=== PATIENT | female | born 1955 | race Caucasian/White ===

== ENCOUNTER → 2018-07-18 | Outpatient (REF) | payer OTHER ==
[2018-07-18 19:54] LABS: CALCIUM LEVEL 9.3 MG/DL (8.8-10.2); PHOSPHORUS LEVEL 3.8 MG/DL (2.5-4.9)
[2018-07-18 20:08] LABS: PTH INTACT 53.8 PG/ML (18.5-88.0); TOTAL 25(OH) VITAMIN D 53.9 NG/ML (30.0-100.0)
== END ==
LOC: M LABDRWAD 19:11
PROVIDERS: ATTEND Nurse Practitioner Family
DX: M81.0 Age-related osteoporosis without current pathological fracture (principal)

== ENCOUNTER → 2018-11-27 | Outpatient (REF) | payer OTHER ==
[2018-11-27 13:30] LABS: BLOOD UREA NITROGEN 10 MG/DL (7-18); CALCIUM LEVEL 9.2 MG/DL (8.8-10.2); CARBON DIOXIDE LEVEL 29 MEQ/L (21-32); CHLORIDE LEVEL 104 MEQ/L (98-107); CHOLESTEROL LEVEL 162 MG/DL (<200); CHOLESTEROL RISK RATIO 2.492 (<5); CREATININE FOR GFR 0.74 MG/DL (0.55-1.30); FREE T4 1.12 NG/DL (0.76-1.46); GLOMERULAR FILTRATION RATE > 60.0 (>45); GLUCOSE, FASTING 84 MG/DL (70-100); HDL CHOLESTEROL 65 MG/DL (>40); LDL CHOLESTEROL 85 MG/DL (<100); NON-HDL-C 97 MG/DL; POTASSIUM SERUM 4.4 MEQ/L (3.5-5.1); SODIUM LEVEL 140 MEQ/L (136-145); THYROXINE (T4) 8.3 UG/DL (4.5-12.0); TRIGLYCERIDES LEVEL 62 MG/DL (<150)
== END ==
LOC: M LABDRWAD 12:31
PROVIDERS: ATTEND Family Medicine
DX: E03.4 Atrophy of thyroid (acquired) (principal); E55.9 Vitamin D deficiency, unspecified; E78.5 Hyperlipidemia, unspecified

== ENCOUNTER → 2019-03-29 | Outpatient (REF) ==
[~2019-03-29] MED LIST: ATOR1TAB19 PO; ATOR1TAB21 PO; CALCTAB89 PO; D 50CAP3 PO; LEVO75TA4 PO; OMEP-218 PO
== END ==
LOC: M LAB LCGH 08:56
PROVIDERS: ATTEND Surgery
DX: K22.70 Barrett's esophagus without dysplasia (principal)

== ENCOUNTER → 2019-04-02 | Outpatient (REF) | payer OTHER ==
[2019-04-02 13:12] LABS: BLOOD UREA NITROGEN 17 MG/DL (7-18); CALCIUM LEVEL 9.7 MG/DL (8.8-10.2); CARBON DIOXIDE LEVEL 31 MEQ/L (21-32); CHLORIDE LEVEL 104 MEQ/L (98-107); CREATININE FOR GFR 0.71 MG/DL (0.55-1.30); GLOMERULAR FILTRATION RATE > 60.0 (>45); GLUCOSE, FASTING 77 MG/DL (70-100); POTASSIUM SERUM 4.9 MEQ/L (3.5-5.1); SODIUM LEVEL 140 MEQ/L (136-145)
[2019-04-02 13:21] LABS: TOTAL 25(OH) VITAMIN D 80.8 NG/ML (30.0-100.0)
== END ==
LOC: M LABDRWAD 12:22
PROVIDERS: ATTEND Nurse Practitioner Family
DX: M81.0 Age-related osteoporosis without current pathological fracture (principal)

== ENCOUNTER → 2019-05-28 | Outpatient (REF) | payer OTHER | LOC: M LAB LCGH 12:49 | PROVIDERS: ATTEND Family Medicine | DX: Z12.4 Encounter for screening for malignant neoplasm of cervix (principal); N95.2 Postmenopausal atrophic vaginitis ==

== ENCOUNTER → 2019-07-05 | Outpatient (REF) | payer OTHER ==
[2019-07-05 16:58] LABS: BLOOD UREA NITROGEN 11 MG/DL (7-18); CALCIUM LEVEL 9.4 MG/DL (8.8-10.2); CARBON DIOXIDE LEVEL 30 MEQ/L (21-32); CHLORIDE LEVEL 105 MEQ/L (98-107); CREATININE FOR GFR 0.71 MG/DL (0.55-1.30); GLOMERULAR FILTRATION RATE > 60.0 (>45); GLUCOSE, FASTING 70 MG/DL (70-100); POTASSIUM SERUM 4.4 MEQ/L (3.5-5.1); SODIUM LEVEL 140 MEQ/L (136-145)
== END ==
LOC: M LAB REF 16:01 → M LABDRWAD 16:01
PROVIDERS: ATTEND Internal Medicine Endocrinology, Diabetes & Metabolism
DX: M81.0 Age-related osteoporosis without current pathological fracture (principal)

== ENCOUNTER → 2020-01-14 | Outpatient (REF) | payer OTHER ==
[~2020-01-14] MED LIST changes: +METH1TAB40 PO
[2020-01-14 18:46] LABS: BLOOD UREA NITROGEN 14 MG/DL (7-18); CARBON DIOXIDE LEVEL 30 MEQ/L (21-32); CHLORIDE LEVEL 108 MEQ/L (98-107); CREATININE FOR GFR 0.76 MG/DL (0.55-1.30); GLOMERULAR FILTRATION RATE > 60.0 (>45); GLUCOSE, FASTING 85 MG/DL (70-100); POTASSIUM SERUM 4.1 MEQ/L (3.5-5.1); SODIUM LEVEL 139 MEQ/L (136-145)
[2020-01-14 18:57] LABS: TOTAL 25(OH) VITAMIN D 85.4 NG/ML (30.0-100.0)
== END ==
LOC: M LABDRWAD 17:43
PROVIDERS: ATTEND Internal Medicine Endocrinology, Diabetes & Metabolism
DX: E55.9 Vitamin D deficiency, unspecified (principal)

== ENCOUNTER 2020-04-09 08:33 | Outpatient (CLI) | payer OTHER ==
[~2020-04-09] VITALS: Ht 160 cm; Wt 64.4 kg
[~2020-04-09 08:33] MED LIST changes: -METH1TAB40 PO; +ZOLEDRONIC ACID 5 MG in IV 1 EA IV ONE
[2020-04-09 08:43] VITALS: BP 135/71
[2020-04-09] MEDS ORDERED: METH1TAB40 PO (08:57)
[2020-04-09 09:35] VITALS: BP 136/81
== END 2020-04-09 09:35 | disposition home or self-care (01) ==
LOC: M INFU 08:33
PROVIDERS: ATTEND Internal Medicine Endocrinology, Diabetes & Metabolism
DX: M81.0 Age-related osteoporosis without current pathological fracture (principal)
CPT/HCPCS: 96365; J3489

== ENCOUNTER → 2020-07-14 | Outpatient (REF) | payer OTHER ==
[~2020-07-14] MED LIST changes: +METH1TAB40 PO; -ZOLEDRONIC ACID 5 MG in IV 1 EA IV ONE
[2020-07-14 18:00] LABS: BLOOD UREA NITROGEN 9 MG/DL (7-18); CALCIUM LEVEL 9.2 MG/DL (8.8-10.2); CARBON DIOXIDE LEVEL 30 MEQ/L (21-32); CHLORIDE LEVEL 107 MEQ/L (98-107); CREATININE FOR GFR 0.73 MG/DL (0.55-1.30); GLOMERULAR FILTRATION RATE > 60.0 (>45); GLUCOSE, FASTING 80 MG/DL (70-100); POTASSIUM SERUM 4.1 MEQ/L (3.5-5.1); SODIUM LEVEL 141 MEQ/L (136-145)
== END ==
LOC: M LABDRWAD 16:09
PROVIDERS: ATTEND Nurse Practitioner Family
DX: M81.0 Age-related osteoporosis without current pathological fracture (principal)

== ENCOUNTER → 2021-02-24 | Outpatient (REF) | payer OTHER ==
[~2021-02-24] MED LIST changes: +METH-1164 PO; -METH1TAB40 PO
[2021-02-24 13:52] LABS: BLOOD UREA NITROGEN 6 MG/DL (7-18); CALCIUM LEVEL 8.9 MG/DL (8.8-10.2); CARBON DIOXIDE LEVEL 30 MEQ/L (21-32); CHLORIDE LEVEL 105 MEQ/L (98-107); CREATININE FOR GFR 0.76 MG/DL (0.55-1.30); GLOMERULAR FILTRATION RATE > 60.0 (>45); GLUCOSE, FASTING 95 MG/DL (70-100); POTASSIUM SERUM 4.2 MEQ/L (3.5-5.1); SODIUM LEVEL 140 MEQ/L (136-145)
[2021-02-24 13:55] LABS: TOTAL 25(OH) VITAMIN D 55.4 NG/ML (30.0-100.0)
== END ==
LOC: M LABDRWAD 12:40
PROVIDERS: ATTEND Nurse Practitioner Family
DX: M81.0 Age-related osteoporosis without current pathological fracture (principal); E55.9 Vitamin D deficiency, unspecified

== ENCOUNTER 2021-04-13 14:58 | Outpatient (CLI) | payer MEDICARE ==
[~2021-04-13] VITALS: Ht 160 cm; Wt 64.4 kg
[2021-04-13] MEDS ORDERED: ZOLEDRONIC ACID 5 MG in IV 1 EA IV ONE (15:00)
[2021-04-13 15:30] VITALS: BP 143/71
[2021-04-13 16:05] VITALS: BP 136/64
== END 2021-04-13 16:05 | disposition home or self-care (01) ==
LOC: M INFU 14:58
PROVIDERS: ATTEND Internal Medicine Endocrinology, Diabetes & Metabolism
DX: M81.0 Age-related osteoporosis without current pathological fracture (principal); Z88.8 Allergy status to other drugs, medicaments and biological substances
CPT/HCPCS: 96365; J3489

== ENCOUNTER → 2021-06-16 | Outpatient (REF) | payer MEDICARE, OTHER ==
[2021-06-16 13:40] LABS: BLOOD UREA NITROGEN 15 MG/DL (7-18); CALCIUM LEVEL 9.3 MG/DL (8.8-10.2); CARBON DIOXIDE LEVEL 29 MEQ/L (21-32); CHLORIDE LEVEL 105 MEQ/L (98-107); CREATININE FOR GFR 0.69 MG/DL (0.55-1.30); GLOMERULAR FILTRATION RATE > 60.0 (>45); GLUCOSE, FASTING 88 MG/DL (70-100); POTASSIUM SERUM 4.1 MEQ/L (3.5-5.1); SODIUM LEVEL 139 MEQ/L (136-145)
== END ==
LOC: M LABDRWAD 12:28
PROVIDERS: ATTEND Internal Medicine Endocrinology, Diabetes & Metabolism
DX: M81.0 Age-related osteoporosis without current pathological fracture (principal)

== ENCOUNTER → 2021-07-28 | Outpatient (REF) | payer MEDICARE, OTHER ==
[~2021-07-28] MED LIST changes: +OMEP-173 PO; -OMEP-218 PO
[2021-07-28 18:15] LABS: BLOOD UREA NITROGEN 14 MG/DL (7-18); CALCIUM LEVEL 9.1 MG/DL (8.8-10.2); CARBON DIOXIDE LEVEL 29 MEQ/L (21-32); CHLORIDE LEVEL 107 MEQ/L (98-107); CREATININE FOR GFR 0.73 MG/DL (0.55-1.30); GLOMERULAR FILTRATION RATE > 60.0 (>45); GLUCOSE, FASTING 72 MG/DL (70-100); POTASSIUM SERUM 4.5 MEQ/L (3.5-5.1); SODIUM LEVEL 140 MEQ/L (136-145)
[2021-07-28 18:26] LABS: TOTAL 25(OH) VITAMIN D 74.4 NG/ML (30.0-100.0)
== END ==
LOC: M LABDRWAD 16:29
PROVIDERS: ATTEND Internal Medicine Endocrinology, Diabetes & Metabolism
DX: E55.9 Vitamin D deficiency, unspecified (principal); M81.0 Age-related osteoporosis without current pathological fracture

== ENCOUNTER → 2021-08-12 | Outpatient (REF) | payer MEDICARE, OTHER ==
[2021-08-12 12:52] LABS: BASO # 0.1 10^3/uL (0.0-0.2); BASO % 0.9 % (0.0-1.0); EOS # 0.1 10^3/uL (0.0-0.5); EOS % 2.4 % (0.0-3.0); HEMATOCRIT 41.8 % (36.0-47.0); HEMOGLOBIN 13.4 g/dl (12.0-15.5); LYMPH # 1.3 10^3/uL (1.5-5.0); LYMPH % 23.3 % (24.0-44.0); MEAN CORPUSCULAR HEMOGLOBIN 28.6 pg (27.0-33.0); MEAN CORPUSCULAR HGB CONC 32.1 g/dl (32.0-36.5); MEAN CORPUSCULAR VOLUME 89.1 fl (80.0-96.0); MONO # 0.4 10^3/uL (0.0-0.8); MONO % 6.9 % (2.0-8.0); NEUTROPHILS # 3.8 10^3/uL (1.5-8.5); NEUTROPHILS % 66.2 % (36.0-66.0); PLATELET COUNT, AUTOMATED 244 10^3/uL (150-450); RED BLOOD COUNT 4.69 10^6/uL (4.00-5.40); WHITE BLOOD COUNT 5.8 10^3/uL (4.0-10.0)
[2021-08-12 13:22] LABS: ALT/SGPT 26 U/L (12-78); BLOOD UREA NITROGEN 16 MG/DL (7-18); CALCIUM LEVEL 9.4 MG/DL (8.8-10.2); CARBON DIOXIDE LEVEL 29 MEQ/L (21-32); CHLORIDE LEVEL 105 MEQ/L (98-107); CREATININE FOR GFR 0.77 MG/DL (0.55-1.30); GLOMERULAR FILTRATION RATE > 60.0 (>45); GLUCOSE, FASTING 66 MG/DL (70-100); POTASSIUM SERUM 4.4 MEQ/L (3.5-5.1); SODIUM LEVEL 140 MEQ/L (136-145)
[2021-08-12 13:23] LABS: BILIRUBIN,TOTAL 0.3 MG/DL (0.2-1.0); FREE T4 1.08 NG/DL (0.76-1.46); TOTAL PROTEIN 6.9 GM/DL (6.4-8.2)
[2021-08-13 10:48] LABS: TOTAL 25(OH) VITAMIN D 84.5 NG/ML (30.0-100.0)
== END ==
LOC: M LABDRWAD 12:22
PROVIDERS: ATTEND Nurse Practitioner Family
DX: E03.9 Hypothyroidism, unspecified (principal); D64.9 Anemia, unspecified; E55.9 Vitamin D deficiency, unspecified; Z79.899 Other long term (current) drug therapy

== ENCOUNTER → 2021-09-08 | Outpatient (REF) | payer MEDICARE, OTHER ==
[2021-09-08 14:38] LABS: BASO # 0.1 10^3/uL (0.0-0.2); BASO % 0.9 % (0.0-1.0); HEMATOCRIT 42.8 % (36.0-47.0); HEMOGLOBIN 13.7 g/dl (12.0-15.5); LYMPH # 1.3 10^3/uL (1.5-5.0); LYMPH % 22.8 % (24.0-44.0); MEAN CORPUSCULAR HEMOGLOBIN 28.5 pg (27.0-33.0); MONO # 0.6 10^3/uL (0.0-0.8); MONO % 10.4 % (2.0-8.0); NEUTROPHILS # 3.8 10^3/uL (1.5-8.5); NEUTROPHILS % 65.7 % (36.0-66.0); PLATELET COUNT, AUTOMATED 235 10^3/uL (150-450); RED BLOOD COUNT 4.81 10^6/uL (4.00-5.40); WHITE BLOOD COUNT 5.8 10^3/uL (4.0-10.0)
[2021-09-08 16:06] LABS: ALBUMIN 4.3 GM/DL (3.2-5.2); ALT/SGPT 30 U/L (12-78); BILIRUBIN,TOTAL 0.4 MG/DL (0.2-1.0); BLOOD UREA NITROGEN 10 MG/DL (7-18); CALCIUM LEVEL 9.7 MG/DL (8.8-10.2); CARBON DIOXIDE LEVEL 32 MEQ/L (21-32); CHLORIDE LEVEL 103 MEQ/L (98-107); CHOLESTEROL LEVEL 166 MG/DL (<200); CHOLESTEROL RISK RATIO 2.515 (<5); CREATININE FOR GFR 0.76 MG/DL (0.55-1.30); GLOMERULAR FILTRATION RATE > 60.0 (>45); GLUCOSE, FASTING 86 MG/DL (70-100); HDL CHOLESTEROL 66 MG/DL (>40); LDL CHOLESTEROL 82 MG/DL (<100); NON-HDL-C 100 MG/DL; POTASSIUM SERUM 3.8 MEQ/L (3.5-5.1); SODIUM LEVEL 140 MEQ/L (136-145); TOTAL PROTEIN 7.2 GM/DL (6.4-8.2); TRIGLYCERIDES LEVEL 90 MG/DL (<150)
== END ==
LOC: M LABDRWAD 12:41
PROVIDERS: ATTEND Nurse Practitioner Family
DX: D64.9 Anemia, unspecified (principal); E03.9 Hypothyroidism, unspecified; E78.00 Pure hypercholesterolemia, unspecified

== ENCOUNTER → 2022-03-22 | Outpatient (REF) | payer MEDICARE ==
[2022-03-22 13:19] LABS: HEMATOCRIT 41.7 % (36.0-47.0); HEMOGLOBIN 13.2 g/dl (12.0-15.5); MEAN CORPUSCULAR HEMOGLOBIN 28.7 pg (27.0-33.0); MEAN CORPUSCULAR HGB CONC 31.7 g/dl (32.0-36.5); MEAN CORPUSCULAR VOLUME 90.7 fl (80.0-96.0); PLATELET COUNT, AUTOMATED 229 10^3/uL (150-450); WHITE BLOOD COUNT 5.7 10^3/uL (4.0-10.0)
[2022-03-22 14:09] LABS: ALT/SGPT 26 U/L (12-78); BILIRUBIN,TOTAL 0.4 MG/DL (0.2-1.0); BLOOD UREA NITROGEN 12 MG/DL (7-18); CALCIUM LEVEL 9.5 MG/DL (8.8-10.2); CARBON DIOXIDE LEVEL 30 MEQ/L (21-32); CHLORIDE LEVEL 103 MEQ/L (98-107); CHOLESTEROL LEVEL 151 MG/DL (<200); CHOLESTEROL RISK RATIO 2.188 (<5); CREATININE FOR GFR 0.79 MG/DL (0.55-1.30); FERRITIN 76 NG/ML (8-252); FREE T4 1.09 NG/DL (0.76-1.46); GLOMERULAR FILTRATION RATE > 60.0 (>45); GLUCOSE, FASTING 89 MG/DL (70-100); HDL CHOLESTEROL 69 MG/DL (>40); IRON (FE) 73 UG/DL (50-170); LDL CHOLESTEROL 71 MG/DL (<100); NON-HDL-C 82 MG/DL; POTASSIUM SERUM 4.1 MEQ/L (3.5-5.1); SODIUM LEVEL 136 MEQ/L (136-145); TOTAL IRON BINDING CAPACITY 318 UG/DL (250-450); TRIGLYCERIDES LEVEL 55 MG/DL (<150)
[2022-03-22 14:42] LABS: TOTAL 25(OH) VITAMIN D 83.3 NG/ML (30.0-100.0)
== END ==
LOC: M SFHCADAM 07:59
PROVIDERS: ATTEND Physician Assistant
DX: D50.9 Iron deficiency anemia, unspecified (principal); E55.9 Vitamin D deficiency, unspecified; E03.9 Hypothyroidism, unspecified; E78.00 Pure hypercholesterolemia, unspecified; Z79.890 Hormone replacement therapy

== ENCOUNTER → 2022-05-15 | Outpatient (CLI) | payer MEDICARE ==
[~2022-05-15] MED LIST changes: +MELA10CA2 PO; +VITA500075 PO
== END ==
LOC: M LABSMTC 10:45
PROVIDERS: ATTEND Anesthesiology
DX: Z01.812 Encounter for preprocedural laboratory examination (principal); Z20.822 Contact with and (suspected) exposure to COVID-19

== ENCOUNTER 2022-05-17 10:42 | Day surgery (SDC) | payer MEDICARE ==
[~2022-05-17] VITALS: Ht 160 cm; Wt 60.3 kg
[~2022-05-17 10:42] MED LIST changes: +NS 1,000 ML IV ONE
[2022-05-17] MEDS ORDERED: fentaNYL 100 MCG/2 ML INJECTION As Ordered ONE (12:44)
[2022-05-17] MEDS ORDERED: propofoL 200 MG/20 ML VIAL As Ordered ONE (12:51)
[2022-05-17] MEDS ORDERED: LIDOCAINE 2% 100MG/5ML SDV (FOR ANES.) As Ordered ONE (12:51)
[2022-05-17 13:15] VITALS: BP 146/79
== END 2022-05-17 13:35 | disposition home or self-care (01) ==
LOC: M OPP 10:42
PROVIDERS: ATTEND Internal Medicine Gastroenterology
DX: K21.00 Gastro-esophageal reflux disease with esophagitis, without bleeding (principal); K22.89 Other specified disease of esophagus; K22.70 Barrett's esophagus without dysplasia; Z79.02 Long term (current) use of antithrombotics/antiplatelets; Z79.899 Other long term (current) drug therapy; Z88.5 Allergy status to narcotic agent; E03.9 Hypothyroidism, unspecified; Z80.1 Family history of malignant neoplasm of trachea, bronchus and lung
CPT/HCPCS: 43239; 88305; J3010

== ENCOUNTER → 2023-03-27 | Outpatient (REF) | payer MEDICARE ==
[~2023-03-27] MED LIST changes: -NS 1,000 ML IV ONE
[2023-03-27 13:59] LABS: BLOOD UREA NITROGEN 8 MG/DL (9-23); CALCIUM LEVEL 9.3 MG/DL (8.3-10.6); CARBON DIOXIDE LEVEL 31 MMOL/L (20-31); CHLORIDE LEVEL 104 MMOL/L (98-107); GLOMERULAR FILTRATION RATE > 60.0 (>45); GLUCOSE, FASTING 86 MG/DL (74-106); SODIUM LEVEL 141 MMOL/L (136-145)
[2023-03-27 14:00] LABS: TOTAL 25(OH) VITAMIN D 83.8 NG/ML (20.0-100.0)
== END ==
LOC: M LABDRWAD 12:23
PROVIDERS: ATTEND Internal Medicine Endocrinology, Diabetes & Metabolism
DX: M81.0 Age-related osteoporosis without current pathological fracture (principal); E55.9 Vitamin D deficiency, unspecified

== ENCOUNTER → 2023-05-18 | Outpatient (REF) | payer MEDICARE ==
[2023-05-18 13:21] LABS: HEMATOCRIT 40.9 % (36.0-47.0); HEMOGLOBIN 12.8 g/dl (12.0-15.5); MEAN CORPUSCULAR HEMOGLOBIN 28.5 pg (27.0-33.0); MEAN CORPUSCULAR HGB CONC 31.3 g/dl (32.0-36.5); MEAN CORPUSCULAR VOLUME 91.1 fl (80.0-96.0); PLATELET COUNT, AUTOMATED 234 10^3/uL (150-450); RED BLOOD COUNT 4.49 10^6/uL (4.00-5.40); WHITE BLOOD COUNT 4.9 10^3/uL (4.0-10.0)
[2023-05-18 13:49] LABS: ALKALINE PHOSPHATASE 46 U/L (46-116); ALT/SGPT 22 U/L (7.0-40); AST/SGOT 19 U/L (<34); BILIRUBIN,TOTAL 0.4 MG/DL (0.3-1.2); BLOOD UREA NITROGEN 14 MG/DL (9-23); CALCIUM LEVEL 9.4 MG/DL (8.3-10.6); CARBON DIOXIDE LEVEL 29 MMOL/L (20-31); CHLORIDE LEVEL 104 MMOL/L (98-107); CHOLESTEROL LEVEL 168 MG/DL (<200); CHOLESTEROL RISK RATIO 2.58 (<5); CREATININE FOR GFR 0.75 MG/DL (0.55-1.30); GLOMERULAR FILTRATION RATE > 60.0 (>45); GLUCOSE, FASTING 84 MG/DL (74-106); HDL CHOLESTEROL 65.1 MG/DL (>40); LDL CHOLESTEROL 88.9 MG/DL (<100); NON-HDL-C 102.9 MG/DL; POTASSIUM SERUM 4.2 MMOL/L (3.5-5.1); SODIUM LEVEL 140 MMOL/L (136-145); TOTAL PROTEIN 6.6 G/DL (5.7-8.2); TRIGLYCERIDES LEVEL 70 MG/DL (<150)
[2023-05-18 13:53] LABS: THYROID STIMULATING HORMONE 3.451 uIU/ML (0.55-4.78)
[2023-05-18 13:54] LABS: FREE T4 1.21 NG/DL (0.89-1.76)
== END ==
LOC: M SFHCADAM 07:58
PROVIDERS: ATTEND Physician Assistant
DX: E78.00 Pure hypercholesterolemia, unspecified (principal); E03.9 Hypothyroidism, unspecified; K22.70 Barrett's esophagus without dysplasia

== ENCOUNTER → 2023-10-04 | Outpatient (CLI) | payer MEDICARE | LOC: M ADAMS 15:39 | PROVIDERS: ATTEND Physician Assistant | DX: R07.89 Other chest pain (principal) ==

== ENCOUNTER → 2023-10-05 | Outpatient (REF) | payer MEDICARE ==
[2023-10-05 19:36] LABS: BLOOD UREA NITROGEN 15 MG/DL (9-23); CALCIUM LEVEL 9.3 MG/DL (8.3-10.6); CARBON DIOXIDE LEVEL 32 MMOL/L (20-31); CHLORIDE LEVEL 106 MMOL/L (98-107); CREATININE FOR GFR 0.81 MG/DL (0.55-1.30); GLOMERULAR FILTRATION RATE > 60.0 (>45); GLUCOSE, FASTING 71 MG/DL (74-106); POTASSIUM SERUM 4.2 MMOL/L (3.5-5.1); SODIUM LEVEL 140 MMOL/L (136-145)
[2023-10-05 19:37] LABS: TOTAL 25(OH) VITAMIN D 79.6 NG/ML (20.0-100.0)
== END ==
LOC: M LABDRWAD 16:38 → M LABWUC 16:38
PROVIDERS: ATTEND Internal Medicine Endocrinology, Diabetes & Metabolism
DX: E55.9 Vitamin D deficiency, unspecified (principal)

== ENCOUNTER → 2024-01-31 | Outpatient (REF) | payer MEDICARE | LOC: M SFHCPLAZ 15:08 | PROVIDERS: ATTEND Physician Assistant Medical | DX: R19.7 Diarrhea, unspecified (principal) ==

== ENCOUNTER → 2024-03-15 | Outpatient (REF) | payer MEDICARE | LOC: M SFHCADAM 16:52 | PROVIDERS: ATTEND Physician Assistant | DX: R19.7 Diarrhea, unspecified (principal) ==

== ENCOUNTER → 2024-05-17 | Outpatient (REF) | payer MEDICARE ==
[2024-05-17 12:37] LABS: HEMATOCRIT 39.7 % (36.0-47.0); HEMOGLOBIN 12.8 g/dl (12.0-15.5); MEAN CORPUSCULAR HEMOGLOBIN 28.6 pg (27.0-33.0); MEAN CORPUSCULAR HGB CONC 32.2 g/dl (32.0-36.5); MEAN CORPUSCULAR VOLUME 88.8 fl (80.0-96.0); PLATELET COUNT, AUTOMATED 254 10^3/uL (150-450); RED BLOOD COUNT 4.47 10^6/uL (4.00-5.40); WHITE BLOOD COUNT 4.9 10^3/uL (4.0-10.0)
[2024-05-17 12:51] LABS: ALKALINE PHOSPHATASE 45 U/L (35-104); ALT/SGPT 25 U/L (7.0-40); AST/SGOT 21 U/L (<34); BILIRUBIN,TOTAL 0.6 MG/DL (0.3-1.2); BLOOD UREA NITROGEN 13 MG/DL (9-23); CALCIUM LEVEL 10.4 MG/DL (8.3-10.6); CARBON DIOXIDE LEVEL 28 MMOL/L (20-31); CHLORIDE LEVEL 108 MMOL/L (98-107); CHOLESTEROL LEVEL 158 MG/DL (<200); CHOLESTEROL RISK RATIO 2.43 (<5); CREATININE FOR GFR 0.83 MG/DL (0.55-1.30); GLOMERULAR FILTRATION RATE > 60.0 (>45); GLUCOSE, FASTING 86 MG/DL (74-106); HDL CHOLESTEROL 64.9 MG/DL (>40); LDL CHOLESTEROL 82.7 MG/DL (<100); NON-HDL-C 93.1 MG/DL; POTASSIUM SERUM 4.3 MMOL/L (3.5-5.1); SODIUM LEVEL 141 MMOL/L (136-145); TOTAL PROTEIN 6.7 G/DL (5.7-8.2); TRIGLYCERIDES LEVEL 52 MG/DL (<150)
[2024-05-17 12:53] LABS: FREE T4 1.18 NG/DL (0.89-1.76)
[2024-05-17 12:54] LABS: THYROID STIMULATING HORMONE 3.245 uIU/ML (0.55-4.78)
[2024-05-17 13:14] LABS: HEMOGLOBIN A1c 5.5 % (4.0-6.0)
== END ==
LOC: M SFHCADAM 10:36
PROVIDERS: ATTEND Physician Assistant
DX: R19.7 Diarrhea, unspecified (principal); E78.00 Pure hypercholesterolemia, unspecified; E03.9 Hypothyroidism, unspecified; M81.0 Age-related osteoporosis without current pathological fracture; K22.70 Barrett's esophagus without dysplasia; Z79.899 Other long term (current) drug therapy

== ENCOUNTER → 2024-05-21 | Outpatient (REF) | payer MEDICARE | LOC: M SFHCADAM 12:15 | PROVIDERS: ATTEND Physician Assistant | DX: R19.7 Diarrhea, unspecified (principal) ==

== ENCOUNTER → 2024-05-30 | Outpatient (REF) | payer MEDICARE | LOC: M SFHCADAM 12:13 | PROVIDERS: ATTEND Physician Assistant | DX: R19.7 Diarrhea, unspecified (principal) ==

== ENCOUNTER 2024-10-07 10:15 | Day surgery (SDC) | payer MEDICARE ==
[~2024-10-07] VITALS: Ht 160 cm; Wt 59.4 kg
[~2024-10-07 10:15] MED LIST changes: +B-12100010 PO; +FAMO1TAB11 PO; +GLUC1CAP8 PO
[2024-10-07] MEDS ORDERED: LIDOCAINE 2% 100MG/5ML SDV (FOR ANES.) As Ordered ONE (11:17)
[2024-10-07] MEDS ORDERED: propofoL 200 MG/20 ML VIAL As Ordered ONE (11:17)
[2024-10-07] MEDS ORDERED: GLYCOPYRROLATE INJ 0.2 MG/ML 2 ML VIAL As Ordered ONE (11:17)
[2024-10-07] MEDS ORDERED: fentaNYL 100 MCG/2 ML INJECTION As Ordered ONE (11:17)
[2024-10-07 11:50] VITALS: TEMP 97.1
[2024-10-07 12:25] VITALS: BP 133/76; O2SAT 95
== END 2024-10-07 12:27 | disposition home or self-care (01) ==
LOC: M OPP 10:15
PROVIDERS: ATTEND Internal Medicine Gastroenterology
DX: K57.30 Diverticulosis of large intestine without perforation or abscess without bleeding (principal); K64.8 Other hemorrhoids; R19.4 Change in bowel habit; K22.70 Barrett's esophagus without dysplasia; K22.89 Other specified disease of esophagus; R12 Heartburn; Z88.8 Allergy status to other drugs, medicaments and biological substances; Z79.899 Other long term (current) drug therapy
CPT/HCPCS: 43239; 45380; 88305; J1596; J3010

== ENCOUNTER → 2025-01-09 | Outpatient (CLI) | payer MEDICARE ==
[~2025-01-09] MED LIST changes: +CVS10CAP8 PO; -MELA10CA2 PO
[2025-01-09 15:36] LABS: CALCIUM LEVEL 9.2 MG/DL (8.3-10.6); CARBON DIOXIDE LEVEL 30.0 MMOL/L (20-31); CHLORIDE LEVEL 103.0 MMOL/L (98-107); CREATININE FOR GFR 0.73 MG/DL (0.55-1.30); GLOMERULAR FILTRATION RATE 89.0 (>45); POTASSIUM SERUM 4.1 MMOL/L (3.5-5.1); SODIUM LEVEL 143.0 MMOL/L (136-145)
== END ==
LOC: M PLALAB 12:23
PROVIDERS: ATTEND Nurse Practitioner Family
DX: M81.0 Age-related osteoporosis without current pathological fracture (principal)

== ENCOUNTER → 2025-02-12 | Outpatient (CLI) | payer MEDICARE ==
[2025-02-12 14:14] LABS: CALCIUM LEVEL 9.3 MG/DL (8.3-10.6); CARBON DIOXIDE LEVEL 29.0 MMOL/L (20-31); CHLORIDE LEVEL 106.0 MMOL/L (98-107); CREATININE FOR GFR 0.78 MG/DL (0.55-1.30); GLOMERULAR FILTRATION RATE 82.2 (>45); POTASSIUM SERUM 4.3 MMOL/L (3.5-5.1); SODIUM LEVEL 142.0 MMOL/L (136-145)
== END ==
LOC: M LABDRWAD 10:18
PROVIDERS: ATTEND Nurse Practitioner Family
DX: M81.0 Age-related osteoporosis without current pathological fracture (principal)

== ENCOUNTER → 2025-05-19 | Outpatient (REF) | payer MEDICARE ==
[2025-05-19 13:55] LABS: CALCIUM LEVEL 9.1 MG/DL (8.3-10.6); CARBON DIOXIDE LEVEL 30.0 MMOL/L (20-31); CHLORIDE LEVEL 104.0 MMOL/L (98-107); CREATININE FOR GFR 0.8 MG/DL (0.55-1.30); GLOMERULAR FILTRATION RATE 79.2 (>39); POTASSIUM SERUM 4.2 MMOL/L (3.5-5.1); SODIUM LEVEL 144.0 MMOL/L (136-145)
== END ==
LOC: M LABDRWAD 12:58
PROVIDERS: ATTEND Internal Medicine
DX: M81.0 Age-related osteoporosis without current pathological fracture (principal)

== ENCOUNTER → 2025-05-20 | Outpatient (REF) | payer MEDICARE ==
[2025-05-20 13:13] LABS: PLATELET COUNT, AUTOMATED 196 10^3/uL (150-450)
[2025-05-20 13:56] LABS: ALT/SGPT 23 U/L (7.0-40); AST/SGOT 25 U/L (<34); CALCIUM LEVEL 9.2 MG/DL (8.3-10.6); CARBON DIOXIDE LEVEL 30 MMOL/L (20-31); CHLORIDE LEVEL 103 MMOL/L (98-107); CHOLESTEROL LEVEL 151 MG/DL (<200); CHOLESTEROL RISK RATIO 2.17 (<5); CREATININE FOR GFR 0.82 MG/DL (0.55-1.30); GLOMERULAR FILTRATION RATE 76.9 (>39); LDL CHOLESTEROL 70.5 MG/DL (<100); NON-HDL-C 81.5 MG/DL; POTASSIUM SERUM 4.1 MMOL/L (3.5-5.1); SODIUM LEVEL 140 MMOL/L (136-145); TRIGLYCERIDES LEVEL 55 MG/DL (<150)
[2025-05-20 13:57] LABS: TOTAL 25(OH) VITAMIN D 84.9 NG/ML (20.0-100.0)
[2025-05-20 13:59] LABS: FREE T4 1.29 NG/DL (0.89-1.76)
[2025-05-20 14:00] LABS: VITAMIN B12 LEVEL 660 PG/ML (211-911)
== END ==
LOC: M SFHCADAM 10:52
PROVIDERS: ATTEND Physician Assistant
DX: E78.00 Pure hypercholesterolemia, unspecified (principal); E03.9 Hypothyroidism, unspecified; K22.70 Barrett's esophagus without dysplasia; E55.9 Vitamin D deficiency, unspecified; D50.9 Iron deficiency anemia, unspecified

== ENCOUNTER → 2025-05-23 | Outpatient (REF) | payer MEDICARE | LOC: M SFHCADAM 08:58 | PROVIDERS: ATTEND Physician Assistant | DX: G47.62 Sleep related leg cramps (principal) ==